=== PATIENT | male | born 1950 | race Caucasian/White ===

== ENCOUNTER 2017-04-12 09:57 | Outpatient (CLI) | payer OTHER ==
[2017-04-12 10:41] LABS: ALBUMIN 3.9 g/dL (3.2-5.5); ALBUMIN/GLOBULIN RATIO 1.3 (1.0-2.2); ALKALINE PHOSPHATASE 83 IU/L (42-121); ALT ALANINE AMINOTRANSFERASE 43 IU/L (10-60); AST ASPARTATE AMINOTRANSFERASE 32 IU/L (10-42); BILIRUBIN,TOTAL 1.1 mg/dL (0.2-1.0); BUN - BLOOD UREA NITROGEN 15 mg/dL (6-20); CALCIUM 9.3 mg/dL (8.5-10.3); CARBON DIOXIDE - CO2 26 mmol/L (21-32); CHLORIDE 105 mmol/L (101-111); CHOL/HDL RATIO 4.8 (<5.0); CHOLESTEROL 208 mg/dL; CREATININE 0.9 mg/dL (0.6-1.2); GFR - MDRD 84 (>89); GLUCOSE 202 mg/dL (70-100); HDL CHOLESTEROL 43 mg/dL; LDL CHOLESTEROL,CALCULATED 146 mg/dL; LDL/HDL RATIO 3.4 (<3.6); SODIUM 137 mmol/L (135-145); VLDL CHOLESTEROL 19 mg/dL
[2017-04-12 11:08] LABS: HB2 TOTAL 18.1 g/dL; HEMOGLOBIN A1C 1.35 g/dL
== END 2017-04-12 09:58 | disposition home or self-care (01) ==
LOC: LAB 09:57
PROVIDERS: ATTEND Physician Assistant
DX: E03.9 Hypothyroidism, unspecified (principal); I10 Essential (primary) hypertension; E78.5 Hyperlipidemia, unspecified; E11.9 Type 2 diabetes mellitus without complications
CPT/HCPCS: 36415; 80053; 80061; 83036; 84443

== ENCOUNTER 2017-08-29 15:15 | Outpatient (CLI) | payer MEDICARE, OTHER ==
--- NOTE | 2017-08-30 09:32 | Ultrasound Report ---
RIGHT UPPER QUADRANT ULTRASOUND: 08/29/2017 CLINICAL INDICATION: Abdominal pain, elevated alkaline phosphatase. TECHNIQUE: Real-time scanning was performed with commissary representative static images obtained. FINDINGS: The liver measures 15.8 cm. Hepatic echogenicity is diffusely heterogeneous. There are at least two discrete masses in the liver, a hypoechoic 8.6 x 5.8 x 5.1 cm lesion, and a mildly echogenic 6.0 x 2.5 x 1.9 cm. No intrahepatic biliary dilatation is seen. The common bile duct measures 6 mm. The gallbladder demonstrates a calculus. No wall thickening or pericholecystic fluid is seen. The right kidney measures 12.1 cm, and demonstrates moderate hydronephrosis and proximal hydroureter. No shadowing calculus is identified. IMPRESSION: 1. CHOLELITHIASIS, WITHOUT EVIDENCE OF BILIARY OBSTRUCTION. 2. HETEROGENEOUS LIVER, WITH AT LEAST TWO DISCRETE MASSES, SUSPICIOUS FOR MALIGNANCY. 3. RIGHT HYDRONEPHROSIS, OF UNCERTAIN ETIOLOGY. 4. FURTHER EVALUATION WITH CT OF THE ABDOMEN AND PELVIS IS RECOMMENDED. TD: 08/30/2017 09:03
== END 2017-08-29 15:16 | disposition home or self-care (01) ==
LOC: DI 15:15
PROVIDERS: ATTEND Internal Medicine
DX: K80.20 Calculus of gallbladder without cholecystitis without obstruction (principal); R10.9 Unspecified abdominal pain; R74.8 Abnormal levels of other serum enzymes; R16.0 Hepatomegaly, not elsewhere classified; N13.30 Unspecified hydronephrosis
CPT/HCPCS: 76705

== ENCOUNTER 2017-08-31 11:53 | Outpatient (CLI) | payer MEDICARE, OTHER ==
[2017-08-31] MEDS ORDERED: IOPAMIDOL-300 50 ML VIAL ONE (12:11)
[2017-08-31] MEDS ORDERED: IOPAMIDOL-300 100 ML VIAL ONE (12:11)
--- NOTE | 2017-08-31 13:45 | CT Report ---
CT ABDOMEN AND PELVIS WITH CONTRAST: 08/31/2017 CLINICAL INDICATION: Liver lesion, right hydronephrosis. TECHNIQUE: The abdomen and pelvis were obtained with 100 mL Isovue 300 intravenously as well as oral contrast. COMPARISON: Ultrasound 08/29/2017. FINDINGS: Limited evaluation of the lung bases is unremarkable. ABDOMEN: In the posterior inferior right lobe of the liver, there is a hypodense hepatic mass, measuring 10.8 x 5.1 x 6.1 cm, suspicious for primary hepatic neoplasm. There is periportal adenopathy present, with a node posterior to the portal vein measuring 3.2 x 1.5 cm. The spleen, pancreas, left kidney and left adrenal gland appear unremarkable. The right adrenal gland is difficult to separate from the adenopathy. The right kidney demonstrates hydronephrosis, likely secondary to adenopathy. The gallbladder is not dilated. No bowel dilatation, free gas, or abdominal adenopathy is seen. There is prominence of the omentum, especially in the left abdomen, suspicious for omental studding. PELVIS: No free fluid or pelvic adenopathy is appreciated. Thickening of the peritoneal lining in the left lower quadrant is noted, suspicious for peritoneal involvement. Osseous structures demonstrate degenerative changes. IMPRESSION: LARGE HEPATIC MASS, WITH PERIPORTAL ADENOPATHY, SUSPICIOUS FOR PRIMARY HEPATOCELLULAR CARCINOMA. RIGHT HYDRONEPHROSIS APPEARS SECONDARY TO ADENOPATHY. LIKELY PERITONEAL STUDDING. CT DOSE REDUCTION STATEMENT In accordance with CT protocol optimization, one or more of the following dose reduction techniques were utilized for this exam: automated exposure control, adjustment of mA and/or KV based on patient size, or use of iterative reconstructive technique. TD: 08/31/2017 13:37
[2017-09-05] MEDS ORDERED: IOPAMIDOL-300 100 ML VIAL IVP ONE (07:54)
[2017-09-05] MEDS ORDERED: IOPAMIDOL-300 50 ML VIAL PO ONE (07:54)
== END 2017-08-31 11:54 | disposition home or self-care (01) ==
LOC: DI 11:53
PROVIDERS: ATTEND Internal Medicine
DX: R16.0 Hepatomegaly, not elsewhere classified (principal); R59.0 Localized enlarged lymph nodes
CPT/HCPCS: 74177; Q9967

== ENCOUNTER 2017-09-01 14:48 | Outpatient (CLI) | payer MEDICARE, OTHER ==
[2017-09-01 16:10] LABS: BILIRUBIN,DIRECT 0.1 mg/dL (0.1-0.5); BILIRUBIN,TOTAL 0.7 mg/dL (0.2-1.0); CALCIUM 9.6 mg/dL (8.5-10.3); TOTAL PROTEIN 7.7 g/dL (6.7-8.2)
[2017-09-01 16:14] LABS: BASOPHILS # (AUTO) 0.1 10^3/uL (0.0-0.1); BASOPHILS % (AUTO) 0.6 %; EOSINOPHILS # (AUTO) 0.1 10^3/uL (0.0-0.7); EOSINOPHILS % (AUTO) 0.8 %; HGB - HEMOGLOBIN 16.4 g/dL (14.0-18.0); INR 1.2 (0.8-1.2); LYMPHOCYTES # (AUTO) 1.5 10^3/uL (1.5-3.5); LYMPHOCYTES % (AUTO) 15.7 %; MEAN CORPUSCULAR HEMOGLOBIN 30.8 pg (27.0-31.0); MEAN CORPUSCULAR HGB CONC 34.6 g/dL (32.0-36.0); MONOCYTES # (AUTO) 0.9 10^3/uL (0.0-1.0); MONOCYTES % (AUTO) 9.3 %; NEUTROPHILS # (AUTO) 7.1 10^3/uL (1.5-6.6); NEUTROPHILS % (AUTO) 73.6 %; PLT - PLATELET COUNT 198 10^3/uL (130-450); PT - PROTHROMBIN TIME 13.4 secs (9.9-12.6); RED BLOOD COUNT 5.34 10^6/uL (4.70-6.10); RED CELL DISTRIBUTION WIDTH 12.8 % (12.0-15.0); WHITE BLOOD COUNT 9.7 x10^3/uL (4.8-10.8)
[2017-09-02 12:51] LABS: HEPATITIS B CORE AB TOTAL NON-REACTIVE (NON-REACTIVE)
[2017-09-02 15:47] LABS: HEPATITIS B SURFACE ANTIGEN NON-REACTIVE (NON-REACTIVE)
[2017-09-02 17:52] LABS: HEPATITIS C ANTIBODY NON-REACTIVE (NON-REACTIVE)
[2017-09-05 11:11] LABS: ALPHA FETOPROTEIN TUMOR MARKER 4.2 ng/mL (<6.1)
== END 2017-09-01 14:49 | disposition home or self-care (01) ==
LOC: LAB 14:48
PROVIDERS: ATTEND Internal Medicine
DX: E78.5 Hyperlipidemia, unspecified (principal); R16.0 Hepatomegaly, not elsewhere classified; E11.9 Type 2 diabetes mellitus without complications; E03.9 Hypothyroidism, unspecified; C22.0 Liver cell carcinoma
CPT/HCPCS: 36415; 80048; 80076; 82105; 83540; 84466; 85025; 85610; 86704; 86803; 87340

== ENCOUNTER 2017-09-21 13:19 | Outpatient (CLI) | payer MEDICARE, OTHER ==
[2017-09-21 13:37] LABS: BASOPHILS % (AUTO) 0.6 %; EOSINOPHILS # (AUTO) 0.1 10^3/uL (0.0-0.7); EOSINOPHILS % (AUTO) 1.2 %; HGB - HEMOGLOBIN 15.5 g/dL (14.0-18.0); LYMPHOCYTES # (AUTO) 1.9 10^3/uL (1.5-3.5); LYMPHOCYTES % (AUTO) 25.2 %; MEAN CORPUSCULAR HEMOGLOBIN 31.4 pg (27.0-31.0); MEAN CORPUSCULAR HGB CONC 34.5 g/dL (32.0-36.0); MEAN PLATELET VOLUME 7.5 fL (7.4-11.4); MONOCYTES # (AUTO) 0.6 10^3/uL (0.0-1.0); MONOCYTES % (AUTO) 7.7 %; NEUTROPHILS # (AUTO) 4.9 10^3/uL (1.5-6.6); NEUTROPHILS % (AUTO) 65.3 %; PLT - PLATELET COUNT 249 10^3/uL (130-450); RED BLOOD COUNT 4.94 10^6/uL (4.70-6.10); RED CELL DISTRIBUTION WIDTH 12.6 % (12.0-15.0); WHITE BLOOD COUNT 7.5 x10^3/uL (4.8-10.8)
[2017-09-21 14:03] LABS: ALBUMIN 3.3 g/dL (3.2-5.5); ALBUMIN/GLOBULIN RATIO 0.8 (1.0-2.2); BILIRUBIN,TOTAL 0.7 mg/dL (0.2-1.0); CALCIUM 9.1 mg/dL (8.5-10.3); CREATININE 1.4 mg/dL (0.6-1.2); TOTAL PROTEIN 7.3 g/dL (6.7-8.2)
== END 2017-09-21 13:20 | disposition home or self-care (01) ==
LOC: LAB 13:19
PROVIDERS: ATTEND Pharmacist
DX: C22.0 Liver cell carcinoma (principal); R79.89 Other specified abnormal findings of blood chemistry; R93.5 Abnormal findings on diagnostic imaging of other abdominal regions, including retroperitoneum; I26.99 Other pulmonary embolism without acute cor pulmonale
CPT/HCPCS: 36415; 80053; 85025

== ENCOUNTER 2017-09-29 14:31 | Outpatient (CLI) | payer MEDICARE, OTHER ==
[2017-09-29 14:42] LABS: BASOPHILS # (AUTO) 0.1 10^3/uL (0.0-0.1); BASOPHILS % (AUTO) 0.8 %; EOSINOPHILS # (AUTO) 0.1 10^3/uL (0.0-0.7); EOSINOPHILS % (AUTO) 1.7 %; LYMPHOCYTES # (AUTO) 1.8 10^3/uL (1.5-3.5); LYMPHOCYTES % (AUTO) 25.8 %; MEAN CORPUSCULAR HEMOGLOBIN 31.3 pg (27.0-31.0); MEAN CORPUSCULAR HGB CONC 34.6 g/dL (32.0-36.0); MEAN CORPUSCULAR VOLUME 90.6 fL (80.0-94.0); MEAN PLATELET VOLUME 7.6 fL (7.4-11.4); MONOCYTES # (AUTO) 0.6 10^3/uL (0.0-1.0); MONOCYTES % (AUTO) 8.3 %; NEUTROPHILS # (AUTO) 4.5 10^3/uL (1.5-6.6); NEUTROPHILS % (AUTO) 63.4 %; PLT - PLATELET COUNT 221 10^3/uL (130-450); RED BLOOD COUNT 4.79 10^6/uL (4.70-6.10); RED CELL DISTRIBUTION WIDTH 12.8 % (12.0-15.0)
== END 2017-09-29 14:32 | disposition home or self-care (01) ==
LOC: LAB 14:31
PROVIDERS: ATTEND Pharmacist
DX: I26.99 Other pulmonary embolism without acute cor pulmonale (principal)
CPT/HCPCS: 36415; 81599; 85025; 87430; 87529

== ENCOUNTER 2017-10-02 08:53 | Outpatient (CLI) | END 2017-10-02 08:54 | disposition home or self-care (01) ==

== ENCOUNTER 2017-11-02 09:01 | Outpatient (CLI) | payer MEDICARE, OTHER ==
[2017-11-02 09:24] LABS: BASOPHILS # (AUTO) 0.1 10^3/uL (0.0-0.1); BASOPHILS % (AUTO) 1.2 %; EOSINOPHILS # (AUTO) 0.1 10^3/uL (0.0-0.7); HGB - HEMOGLOBIN 13.6 g/dL (14.0-18.0); LYMPHOCYTES # (AUTO) 1.3 10^3/uL (1.5-3.5); LYMPHOCYTES % (AUTO) 22.9 %; MEAN CORPUSCULAR HEMOGLOBIN 31.1 pg (27.0-31.0); MEAN CORPUSCULAR HGB CONC 34.8 g/dL (32.0-36.0); MEAN CORPUSCULAR VOLUME 89.5 fL (80.0-94.0); MEAN PLATELET VOLUME 7.2 fL (7.4-11.4); MONOCYTES # (AUTO) 0.1 10^3/uL (0.0-1.0); MONOCYTES % (AUTO) 1.3 %; NEUTROPHILS # (AUTO) 4.1 10^3/uL (1.5-6.6); NEUTROPHILS % (AUTO) 73.6 %; PLT - PLATELET COUNT 226 10^3/uL (130-450); RED BLOOD COUNT 4.37 10^6/uL (4.70-6.10); RED CELL DISTRIBUTION WIDTH 12.4 % (12.0-15.0); WHITE BLOOD COUNT 5.6 x10^3/uL (4.8-10.8)
== END 2017-11-02 09:02 | disposition home or self-care (01) ==
LOC: LAB 09:01
PROVIDERS: ATTEND Pharmacist
DX: I26.99 Other pulmonary embolism without acute cor pulmonale (principal)
CPT/HCPCS: 36415; 85025

== ENCOUNTER 2017-11-03 08:56 | Outpatient (CLI) | payer MEDICARE, OTHER ==
[2017-11-03 09:59] LABS: ALBUMIN 3.2 g/dL (3.2-5.5); ALBUMIN/GLOBULIN RATIO 0.8 (1.0-2.2); CALCIUM 9.1 mg/dL (8.5-10.3); CREATININE 1.3 mg/dL (0.6-1.2); MAGNESIUM 1.8 mg/dL (1.7-2.8)
== END 2017-11-03 08:57 | disposition home or self-care (01) ==
LOC: LAB 08:56
PROVIDERS: ATTEND Internal Medicine Medical Oncology
DX: I26.99 Other pulmonary embolism without acute cor pulmonale (principal)
CPT/HCPCS: 36415; 80053; 83735

== ENCOUNTER 2017-11-30 11:23 | Outpatient (CLI) | payer MEDICARE, OTHER ==
[2017-11-30 12:08] LABS: HB2 TOTAL 12.5 g/dL; HEMOGLOBIN A1C 1.03 g/dL; HEMOGLOBIN A1C % 9.7 % (4.6-6.2)
== END 2017-11-30 11:24 | disposition home or self-care (01) ==
LOC: LAB 11:23
PROVIDERS: ATTEND Naturopath
DX: C22.1 Intrahepatic bile duct carcinoma (principal); Z86.711 Personal history of pulmonary embolism; E11.9 Type 2 diabetes mellitus without complications; E83.42 Hypomagnesemia
CPT/HCPCS: 36415; 82525; 83036; 83735; 84630; 85384; 85651

== ENCOUNTER 2018-03-14 16:48 | Outpatient (CLI) | payer MEDICARE, OTHER ==
--- NOTE | 2018-03-15 09:24 | Ultrasound Report ---
Reason: HYDRONEPHROSIS, RIGHT Procedure Date: 03/14/2018 Accession Number: [id number] / [id number] Procedure: US - Retroperitoneal CPT Code: FULL RESULT: EXAM: RENAL ULTRASOUND EXAM DATE: 03/14/2018 06:00 PM. CLINICAL HISTORY: Hydronephrosis, right. COMPARISON: None. TECHNIQUE: Real-time scanning was performed with static images obtained. FINDINGS: Blood flow to both kidneys is grossly preserved by color Doppler. Right Kidney: 11.2 cm. Normal echotexture and no grupo hydronephrosis. There is likely a 0.4 mm calculus versus tiny calcified cyst in the left renal midpole, poorly visualized, not suspicious. There is question of a trace pelvocaliectasis. Left Kidney: 12.5 cm. Normal echotexture with no stones, contour-deforming masses, or hydronephrosis. Bladder: Bilateral jets seen. The prevoid bladder volume was 705 cc. The postvoid bladder volume was 397 cc. Other: None. IMPRESSION: No grupo hydronephrosis/obstruction. Significant post void residual, urinary retention. This may account for the questionable trace pelviectasis of the right kidney. RADIA
== END 2018-03-14 16:49 | disposition home or self-care (01) ==
LOC: DI 16:48
PROVIDERS: ATTEND Urology
DX: N13.30 Unspecified hydronephrosis (principal)
CPT/HCPCS: 76770

== ENCOUNTER 2018-04-05 09:38 | Outpatient (CLI) | payer MEDICARE, OTHER ==
[2018-04-05 10:33] LABS: ALBUMIN 3.6 g/dL (3.2-5.5); ALBUMIN/GLOBULIN RATIO 1.2 (1.0-2.2); BASOPHILS % (AUTO) 0.4 %; CALCIUM 9.3 mg/dL (8.5-10.3); CREATININE 1.3 mg/dL (0.6-1.2); EOSINOPHILS % (AUTO) 1.4 %; HGB - HEMOGLOBIN 12.4 g/dL (14.0-18.0); LYMPHOCYTES # (AUTO) 0.8 10^3/uL (1.5-3.5); LYMPHOCYTES % (AUTO) 28.1 %; MAGNESIUM 1.8 mg/dL (1.7-2.8); MEAN CORPUSCULAR HEMOGLOBIN 33.9 pg (27.0-31.0); MEAN CORPUSCULAR VOLUME 96.9 fL (80.0-94.0); MEAN PLATELET VOLUME 7.4 fL (7.4-11.4); MONOCYTES # (AUTO) 0.4 10^3/uL (0.0-1.0); MONOCYTES % (AUTO) 14.3 %; NEUTROPHILS # (AUTO) 1.6 10^3/uL (1.5-6.6); NEUTROPHILS % (AUTO) 55.8 %; PLT - PLATELET COUNT 258 10^3/uL (130-450); RED BLOOD COUNT 3.66 10^6/uL (4.70-6.10); RED CELL DISTRIBUTION WIDTH 14.8 % (12.0-15.0); TOTAL PROTEIN 6.7 g/dL (6.7-8.2); WHITE BLOOD COUNT 2.9 x10^3/uL (4.8-10.8)
[2018-04-05 10:36] LABS: HEMOGLOBIN A1C 0.99 g/dL; HEMOGLOBIN A1C % 9.1 % (4.6-6.2)
[2018-04-05 10:57] LABS: RBC MORPHOLOGY (MULTIPLE) 1+ ANISOCYTOSIS (NORMAL)
== END 2018-04-05 09:39 | disposition home or self-care (01) ==
LOC: LAB 09:38
PROVIDERS: ATTEND Nurse Practitioner Adult Health
DX: Z86.711 Personal history of pulmonary embolism (principal); E11.9 Type 2 diabetes mellitus without complications; R53.83 Other fatigue; C22.1 Intrahepatic bile duct carcinoma; C80.1 Malignant (primary) neoplasm, unspecified; N18.9 Chronic kidney disease, unspecified; D70.1 Agranulocytosis secondary to cancer chemotherapy; R11.0 Nausea
CPT/HCPCS: 36415; 80053; 81599; 82378; 83036; 83735; 85025; 85384; 85651; 86301

== ENCOUNTER 2018-05-09 08:01 | Outpatient (CLI) | payer MEDICARE, OTHER ==
--- NOTE | 2018-05-09 16:34 | Nuclear Medicine Report ---
Reason: HYDRONEPHROSIS OF RIGHT KIDNEY Procedure Date: 05/09/2018 Accession Number: [id number] / [id number] Procedure: NM - Renal Flow + Function w/Rx CPT Code: FULL RESULT: EXAM: RENOGRAM WITH LASIX EXAM DATE: 05/09/2018 11:11 AM. CLINICAL HISTORY: HYDRONEPHROSIS OF RIGHT KIDNEY. COMPARISON: RETROPERITONEAL 03/14/2018 5:17 PM RENAL SCAN 10/02/2017 9:27 AM. TECHNIQUE: Adequate hydration status was ensured. Patient received the intravenous administration of 5.5 mCi Tc-99m MAG3. Immediate renal blood flow images were acquired for 2 minutes. Approximately 10 minutes into the study, the patient received an intravenous administration of 40 mg Lasix. Renal dynamic images were acquired from the posterior projection for approximately 40 minutes. Postvoid images were acquired as well. FINDINGS: Renal Vascular Flow: There is asymmetrically decreased vascular flow to the right kidney. Renal Parenchymal Function: Time to peak activity in the left kidney is 3 minutes. Impaired function of the right kidney with time to peak activity approximately 19 minutes. Drainage: In the left kidney, there is normal drainage for the first 10 minutes. After this point, there is very slow drainage. Post Lasix drainage half-time of the left kidney is greater than 20 minutes. The left renal collecting system does not appear significantly dilated. The right renal collecting system is mildly dilated. There is poor drainage with drainage half-time greater than 20 minutes. Postvoid Images: There is retention of activity in both kidneys and in the urinary bladder. Differential Function: Left Kidney = 78.6% Right Kidney = 21.4% IMPRESSION: 1. Poorly functioning right kidney with little drainage, similar pattern compared to the prior exam. 2. There is initial good drainage of left kidney without collecting system dilation. There is slow drainage past 10 minutes with persistent cortical retention of activity on postvoid images, suggesting impaired renal function rather than obstruction. This is new compared to the prior exam. RADIA
== END 2018-05-09 08:02 | disposition home or self-care (01) ==
LOC: DI 08:01
PROVIDERS: ATTEND Urology
DX: N25.9 Disorder resulting from impaired renal tubular function, unspecified (principal); N13.30 Unspecified hydronephrosis
CPT/HCPCS: 78708

== ENCOUNTER 2018-07-09 09:08 | Outpatient (CLI) | payer MEDICARE, OTHER ==
[2018-07-09 09:21] LABS: BASOPHILS % (AUTO) 0.7 %; EOSINOPHILS % (AUTO) 1.8 %; HGB - HEMOGLOBIN 12.7 g/dL (14.0-18.0); LYMPHOCYTES # (AUTO) 1.2 10^3/uL (1.5-3.5); LYMPHOCYTES % (AUTO) 49.9 %; MEAN CORPUSCULAR HEMOGLOBIN 34.3 pg (27.0-31.0); MEAN CORPUSCULAR HGB CONC 34.6 g/dL (32.0-36.0); MEAN CORPUSCULAR VOLUME 99.1 fL (80.0-94.0); MEAN PLATELET VOLUME 7.3 fL (7.4-11.4); MONOCYTES # (AUTO) 0.3 10^3/uL (0.0-1.0); MONOCYTES % (AUTO) 13.8 %; NEUTROPHILS # (AUTO) 0.8 10^3/uL (1.5-6.6); NEUTROPHILS % (AUTO) 33.8 %; PLT - PLATELET COUNT 218 10^3/uL (130-450); RED CELL DISTRIBUTION WIDTH 15.4 % (12.0-15.0); WHITE BLOOD COUNT 2.3 x10^3/uL (4.8-10.8)
[2018-07-09 09:33] LABS: ALBUMIN 3.6 g/dL (3.2-5.5); ALBUMIN/GLOBULIN RATIO 1.1 (1.0-2.2); BILIRUBIN,TOTAL 0.9 mg/dL (0.2-1.0); CALCIUM 9.5 mg/dL (8.5-10.3); CREATININE 1.4 mg/dL (0.6-1.2); MAGNESIUM 1.9 mg/dL (1.7-2.8)
[2018-07-09 11:04] LABS: PLATELET MORPHOLOGY NORMAL APPEARANCE (NORMAL)
[2018-07-09 11:05] LABS: PLATELET ESTIMATE, MANUAL NORMAL (130-450,000) (NORMAL)
== END 2018-07-09 09:09 | disposition home or self-care (01) ==
LOC: LAB 09:08
PROVIDERS: ATTEND Internal Medicine Medical Oncology
DX: C22.1 Intrahepatic bile duct carcinoma (principal)
CPT/HCPCS: 36415; 80053; 82378; 83735; 85025; 86301

== ENCOUNTER 2018-12-08 08:00 | Outpatient (CLI) | payer MEDICARE, OTHER | END 2018-12-08 08:01 | disposition critical access hospital (66) | LOC: EMS 08:00 | PROVIDERS: ATTEND Surgery | DX: R42 Dizziness and giddiness (principal); R55 Syncope and collapse | CPT/HCPCS: A0425; A0427 ==

== ENCOUNTER 2018-12-08 08:08 | Emergency (ER) | payer MEDICARE, OTHER ==
[2018-12-08] MEDS ORDERED: HYDROmorphone 1 MG/ML CARPUJECT IVP STA (08:26)
[2018-12-08] MEDS ORDERED: SODIUM CHLORIDE 0.9% 1,000 ML IV ONE ×5 (08:26→14:52)
[2018-12-08] MEDS ORDERED: KETOROLAC 15 MG/ML VIAL IVP STA (08:26)
[2018-12-08] MEDS ORDERED: MINERAL OIL ENEMA 133 ML BOTTLE RC STA (08:28)
[2018-12-08] MEDS ORDERED: PROCHLORPERAZINE 10 MG/2 ML VIAL IVP STA (08:30)
--- NOTE | 2018-12-08 08:31 | ED Physician Documentation ---
PD HPI ABD PAIN - Stated complaint Stated Complaint: NEAR SYNCOPE - Chief complaint Chief Complaint: Abd Pain - History obtained from History obtained from: Patient, Family () - History of Present Illness Timing - onset: Today, Last night Timing - details: Gradual onset, Still present, Waxing and waning (He has not had a bowel movement for 4 days. He states he typically will go 3 or 4 days without one and will get some cramping pains prior to the bowel movement. He initially thought he was going to have a bowel movement with cramping started last night and into this morning. He gave himself an enema without any production of stool. He however had a significantly increased amount of abdominal pain and also was feeling lightheaded and nauseous. He had some episo clare of vomiting without any noted coffee grounds or blood. He was feeling generally weak.) Quality: Cramping, Aching, Fullness/distended (He has been developing fullness and distention from ascites gradually over several weeks. He is scheduled to have a paracentesis done at the this coming Monday. He had been feeling more tightly distended with cramping the last couple of days.), Pain Location: All over / everywhere (but more in lower abd) Radiation: Lower back. No: Chest, Left flank, Right flank Improved by: No: Laying still Worsened by: Eating, Moving, Palpation Associated symptoms: Nausea, Vomiting, Constipation (for 4 days since last BM and ongoing constipation prior to that.), Near syncope / syncope, Loss of appetite. No: Fever, Diarrhea, Weight loss Similar symptoms before: Has not had sx before (He has had cramping pain with constipation and prior to bowel movements with enema use in the past. 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 There is some liver lesions as well.) Review of Systems Constitutional: reports: Myalgias, Fatigue. denies: Fever, Chills Nose: denies: Rhinorrhea / runny nose, Congestion Throat: denies: Sore throat Respiratory: denies: Cough GI: reports: Abdominal Pain, Nausea, Vomiting, Constipation. denies: Diarrhea, Hematemesis, Bloody / black stool : denies: Dysuria, Frequency Skin: denies: Rash, Lesions Neurologic: reports: Generalized weakness, Near syncope. denies: Focal weaknes s, Syncope, Altered mental status, Headache PD PAST MEDICAL HISTORY - Past Medical History Cardiovascular: Hypertension Endocrine/Autoimmune: Type 2 diabetes, HyPOthyroidism - Past Surgical History Past Surgical History: Yes HEENT: Tonsil/Adenoidectomy - Present Medications Home Medications: Ambulatory Orders Medication Instructions Recorded Confirmed Levothyroxine Sodium 75 mcg ORAL DAILY 01/01/16 02/08/16 Lisinopril 10 mg ORAL DAILY 01/01/16 02/08/16 Metformin HCl 1,500 mg ORAL DAILY 01/01/16 02/08/16 Cephalexin [Keflex] 500 mg PO QID #24 capsule 02/09/16 Naproxen Sodium 550 mg PO BID #20 tablet 02/09/16 - Allergies Allergies/Adverse Reactions: Allergies Allergy/AdvReac Type Severity Reaction Status Date / Time No Known Drug Allergies Allergy Verified 12/08/18 08:18 - Social History Does the pt smoke?: No Smoking Status: Never smoker Does the pt drink ETOH?: Yes Does the pt have substance abuse?: No - Immunizations Immunizations are current?: Yes - POLST Patient has POLST: No PD ED PE NORMAL - Vitals Vital signs reviewed: Yes - General General: Alert and oriented X 3, Well developed/nourished, Other (He does appear uncomfortable related to lower abdominal pain. He appears nauseated holding an emesis bag.) - HEENT HEENT: PERRL (nonicteric), Pharynx benign - Neck Neck: Supple, no meningeal sign, No adenopathy - Cardiac Cardiac: No murmur. No: RRR (regular but tachycardic) - Respiratory Respiratory: Clear bilaterally - Abdomen Abdomen: Other (His abdomen is significantly distended with tightness and general dullness to percussion. He has an enlarged liver by palpation. There is no hernia palpable. He is generally tender to palpation but more notably in the periumbilical to lower abdomen. Bowel sounds are diminished bilaterally.) - Male Male : Deferred - Rectal Rectal: Other (The patient has good rectal tone. He does not have any stool in the vault or minimally so. It is brown-colored and guaiac negative.) - Back Back: No CVA TTP - Derm Derm: Warm and dry. No: Normal color (pallor) - Extremities Extremities: No deformity, No tenderness to palpate, Normal ROM s pain, No edema, No calf tenderness / cord - Neuro Neuro: Alert and oriented X 3, No motor deficit, Normal speech Eye Opening: Spontaneous Motor: Obeys Commands Verbal: Oriented GCS Score: 15 Results - Vitals Vitals: Vital Signs - 24 hr 12/08/18 12/08/18 12/08/18 08:10 10:16 10:28 Temperature 36.5 C Heart Rate 114 H 118 H Respiratory 17 16 Rate Blood Pressure 148/133 H 82/55 L O2 Saturation 97 12/08/18 12/08/18 12/08/18 10:47 11:04 11:15 Temperature Heart Rate 116 H 110 H 109 H Respiratory 19 19 14 Rate Blood Pressure 86/58 L 110/73 105/83 H O2 Saturation 93 92 94 12/08/18 12/08/18 12/08/18 11:20 11:25 11:30 Temperature Heart Rate 105 H 106 H 106 H Respiratory 12 12 12 Rate Blood Pressure 122/96 H 91/68 99/68 O2 Saturation 95 96 95 12/08/18 12/08/18 12/08/18 11:35 13:56 14:30 Temperature Heart Rate 105 H 105 H 105 H Respiratory 15 12 17 Rate Blood Pressure 74/43 L 85/63 L 92/74 O2 Saturation 98 93 98 Oxygen O2 Source Oxymask Oxygen Flow Rate 4 - Labs Labs: Microbiology 12/08/18 11:13 Body Fluid Culture - Preliminary Peritoneal Fluid Laboratory Tests 12/08/18 12/08/18 12/08/18 08:35 08:35 08:35 WBC 4.3 L RBC 4.81 Hgb 15.4 Hct 45.4 MCV 94.4 H MCH 32.0 H MCHC 33.9 RDW 13.9 Plt Count 126 L MPV 9.9 Neut # (Auto) 2.0 Lymph # (Auto) 2.0 Maries # (Auto) 0.3 Eos # (Auto) 0.0 Baso # (Auto) 0.0 Absolute Nucleated RBC 0.02 Nucleated RBC % 0.5 Sodium 137 Potassium 3.3 L Chloride 102 Carbon Dioxide 21 Anion Gap 14.0 H BUN 17 Creatinine 1.7 H Estimated GFR (MDRD) 40 L Glucose 270 H Lactic Acid 5.6 H* Calcium 10.6 H Magnesium 3.1 H Total Bilirubin 0.6 AST 46 H ALT 30 Alkaline Phosphatase 81 Troponin I High Sens Total Protein 6.7 Albumin 3.0 L Globulin 3.7 Albumin/Globulin Ratio 0.8 L Lipase 76 H Fluid Source Fluid Color Fluid Clarity Fluid WBC Fluid RBC Fluid Neutrophils % Fluid Lymphocytes % Fluid Monocytes % Fluid Macrophages % 12/08/18 12/08/18 12/08/18 08:35 11:11 11:11 WBC RBC Hgb Hct MCV MCH MCHC RDW Plt Count MPV Neut # (Auto) Lymph # (Auto) Maries # (Auto) Eos # (Auto) Baso # (Auto) Absolute Nucleated RBC Nucleated RBC % Sodium Potassium Chloride Carbon Dioxide Anion Gap BUN Creatinine Estimated GFR (MDRD) Glucose Lactic Acid 4.4 H* Calcium Magnesium Total Bilirubin AST ALT Alkaline Phosphatase Troponin I High Sens 30.4 H* 67.0 H* Total Protein Albumin Globulin Albumin/Globulin Ratio Lipase Fluid Source Fluid Color Fluid Clarity Fluid WBC Fluid RBC Fluid Neutrophils % Fluid Lymphocytes % Fluid Monocytes % Fluid Macrophages % 12/08/18 12/08/18 12/08/18 11:11 11:13 15:05 WBC RBC Hgb 13.5 L 13.7 L Hct 40.3 L 41.3 L MCV MCH MCHC RDW Plt Count MPV Neut # (Auto) Lymph # (Auto) Maries # (Auto) Eos # (Auto) Baso # (Auto) Absolute Nucleated RBC Nucleated RBC % Sodium Potassium Chloride Carbon Dioxide Anion Gap BUN Creatinine Estimated GFR (MDRD) Glucose Lactic Acid Calcium Magnesium Total Bilirubin AST ALT Alkaline Phosphatase Troponin I High Sens Total Protein Albumin Globulin Albumin/Globulin Ratio Lipase Fluid Source PERITONEAL Fluid Color STRAW Fluid Clarity HAZY Fluid WBC 963 Fluid RBC 7000 Fluid Neutrophils % 4 Fluid Lymphocytes % 23 Fluid Monocytes % 14 Fluid Macrophages % 59 12/08/18 15:05 WBC RBC Hgb Hct MCV MCH MCHC RDW Plt Count MPV Neut # (Auto) Lymph # (Auto) Maries # (Auto) Eos # (Auto) Baso # (Auto) Absolute Nucleated RBC Nucleated RBC % Sodium Potassium Chloride Carbon Dioxide Anion Gap BUN Creatinine Estimated GFR (MDRD) Glucose Lactic Acid 6.5 H* Calcium Magnesium Total Bilirubin AST ALT Alkaline Phosphatase Troponin I High Sens Total Protein Albumin Globulin Albumin/Globulin Ratio Lipase Fluid Source Fluid Color Fluid Clarity Fluid WBC Fluid RBC Fluid Neutrophils % Fluid Lymphocytes % Fluid Monocytes % Fluid Macrophages % Procedures - Paracentesis Preparation: Consent obtained, Ultrasound guidance, Sterile prep and drape, Local anesthesia Location: LLQ Technique: Z-tract, Catheter over needle Fluid: Cloudy, Sent for cell count, Sent for gram stain, Sent for culture, Sent for protein Aftercare: No complications, Patient tolerated well, Dressing applied PD MEDICAL DECISION MAKING - ED course Complexity details: reviewed results (CT scan did not show any acute obvious process. Known ascites as well as bile duct and liver and peritoneal metallic stenoses were seen. No account for acute infectious process per se. Moderate stool burden. His lactate was elevated and so concern for infectious process. His white count was not elevated but he is post chemotherapy and may be artificially suppressed. The peritoneal fluid post paracentesis showed a white count of 900 with a neutrophil count of 4 and a macrophage count of 50. Otherwise lymphocytes and other cells. This did not necessarily meet the true SBP criteria of greater than 250 PMNs. However he is clinical picture is that of sepsis concern and no other obvious sources identified. I feel we need to treat him as SBP.), re-evaluated patient (He did have diminished alertness and some hypoventilation which responded to supplemental oxygen after the IV pain medicines. The initial dose did not provide much pain relief and so a second dose was given in that was when he had less alertness. He denied any headache. He states his abdominal pain was decreased significantly. Considering constipation, we did give a enema here without any production of stool. There was concern for the abdominal tenderness in association with the ascites and his elevated lactate and blood pressure abnormality. The CT scan did not show any acute process aside from the known tumors and ascites. With this I was concerned about peritonitis and discussed with the patient and his and obtained verbal and written consent for paracentesis. The patient's blood pressure was hypotensive prior to fluids and did improve with IV fluids and then low again after pain medicines. And improved again with some more IV fluids.), d/w bridal sales consultant ( transfer center and then oncology service) ED course: His blood pressure was wavering but did become normotensive with IV fluids. It was susceptible to wavering with interventions such as decreased after pain medication and decreased after the paracentesis. Both did respond to IV fluids. He was started on IV antibiotics post paracentesis for concern of SBP. He did have emesis in the department with some coffee-ground material but no overt red blood. The patient is a patient of the [facility] and is complicated conditions and illness right now. I feel he would benefit from a higher level of care and will contact the transfer center for transfer to [facility]. Apparently receiving providers not sure of placement and want reassessment in ER. Transfer center directed us to just send the patient to the emergency room at [facility] for reassessment and subsequent bed assignment there. - Critical Care Time(min): 60 Time Includes: Direct patient care, Reassess patient, Coordinate care, Family consult for tx dec Data interpretation: Labs, Pulse ox Departure - Departure Disposition: 02 Transfer Acute Care Hosp Clinical Impression: SBP (spontaneous bacterial peritonitis), Elevated lactic acid level, Bile duct carcinoma, Hypotension Abdominal pain Qualifiers: Abdominal location: generalized Qualified Code(s): R10.84 - Generalized abdominal pain Constipation Qualifiers: Constipation type: unspecified constipation type Qualified Code(s): K59.00 - Constipation, unspecified Acute gastritis Qualifiers: Gastritis type: unspecified gastritis Gastritis bleeding: with bleeding Qualified Code(s): K29.01 - Acute gastritis with bleeding Condition: Stable Record reviewed to determine appropriate education?: Yes
[2018-12-08 08:41] LABS: BASOPHILS % (AUTO) 0.2 %; EOSINOPHILS % (AUTO) 0.7 %; HGB - HEMOGLOBIN 15.4 g/dL (14.0-18.0); LYMPHOCYTES % (AUTO) 45.9 %; MEAN CORPUSCULAR HGB CONC 33.9 g/dL (32.0-36.0); MEAN CORPUSCULAR VOLUME 94.4 fL (80.0-94.0); MEAN PLATELET VOLUME 9.9 fL (7.4-11.4); MONOCYTES # (AUTO) 0.3 10^3/uL (0.0-1.0); NEUTROPHILS % (AUTO) 45.5 %; PLT - PLATELET COUNT 126 10^3/uL (130-450); RED BLOOD COUNT 4.81 10^6/uL (4.70-6.10); RED CELL DISTRIBUTION WIDTH 13.9 % (12.0-15.0); WHITE BLOOD COUNT 4.3 x10^3/uL (4.8-10.8)
[2018-12-08] MEDS ORDERED: HYDROmorphone 2 MG/ML VIAL IVP STA (08:45)
[2018-12-08] MEDS ORDERED: IOVERSOL 320 100 ML VIAL IVP ONE ×2 (08:49→09:17)
[2018-12-08 08:55] LABS: ALBUMIN/GLOBULIN RATIO 0.8 (1.0-2.2); BILIRUBIN,TOTAL 0.6 mg/dL (0.2-1.0); CALCIUM 10.6 mg/dL (8.5-10.3); CREATININE 1.7 mg/dL (0.6-1.2); MAGNESIUM 3.1 mg/dL (1.7-2.8); TOTAL PROTEIN 6.7 g/dL (6.7-8.2)
--- NOTE | 2018-12-08 09:46 | CT Report ---
Reason: abrupt lower abd pain; constipation; ascites Procedure Date: 12/08/2018 Accession Number: [id number] / [id number] Procedure: CT - Abdomen/Pelvis W CPT Code: FULL RESULT: EXAM: CT ABDOMEN AND PELVIS EXAM DATE: 12/08/2018 09:17 AM. CLINICAL HISTORY: Abrupt lower abd pain; constipation; ascites. Biliary cancer. COMPARISONS: ABDOMEN/PELVIS W/ 08/31/2017 1:08 PM. TECHNIQUE: Routine helical CT imaging was performed through the abdomen and pelvis. IV contrast: OPTI 320 90ML. Enteric contrast: No. Reconstructions: Coronal and sagittal. In accordance with CT protocol optimization, one or more of the following dose reduction techniques were utilized for this exam: automated exposure control, adjustment of mA and/or KV based on patient size, or use of iterative reconstructive technique. FINDINGS: Lung Bases: Trace pleural fluid bilaterally. Mild wispy bibasilar airspace opacity most consistent with atelectasis. 4 mm focal/nodular density in the posterior basal left lower lobe peripherally (3/3), not clearly seen on the prior study. No other distinct nodules are identified. Liver: The liver is small in overall size the hypovascular mass in the posterior right hepatic lobe is markedly decreased in size with a residual hypodense area measuring approximately 3 x 4 x 3 cm with a few punctate foci of dystrophic calcification. In the anterior right lobe, there is a 0.9 x 0.7 cm oval hypodense nodular focus, not seen before, nonspecific. No other distinct nodules. Gallbladder/Bile Ducts: Gallbladder is normal in size. There is a stent from the common hepatic duct through the mid pancreatic, bile duct, new since 2018. There is minimal left lobe pneumobilia. There is no grupo biliary ductal dilatation. Spleen: Normal. Pancreas: Normal. Adrenal Glands: Normal. Kidneys: Subcentimeter hypodense focus suggesting a scar at the anterior midpole of the left kidney, as before. Otherwise unremarkable. No hydronephrosis. Peritoneal Cavity/Bowel: There is moderate fluid in the distal esophagus. The stomach is mildly distended with fluid and food. Unopacified small bowel loops are nondistended and unremarkable. There is an anteriorly directed mobile cecum. The appendix is not clearly identified. There is a small amount of formed stool in the colon. There is no focal pericolonic fat stranding. There is moderate ascites. There is mild micro-nodularity and moderate reticulation in the mesenteric fat in the left upper quadrant suggesting carcinomatosis. No frankly enlarged lymph nodes are identified. There is no pneumoperitoneum. Pelvic Organs: The bladder is unremarkable. Prostate gland and seminal vesicles are unremarkable. Vasculature: Mild aortoiliac atherosclerotic calcification. Mesenteric, splenic, and portal veins are unremarkable. Bones: Mild diffuse idiopathic skeletal hyperostosis in the lower thoracic greater than lower lumbar spine. There is superimposed degenerative disk disease which is mild to moderate throughout the lumbar spine. There is mild lateral L3-L4 facet osteoarthritis. Other: There is a 3 cm slightly hyperdense nodular focus superficially in the muscular layer of the anterolateral right upper quadrant abdominal wall (3/50). IMPRESSION: 1. Moderate ascites. Micro-nodularity and reticulation in the left upper quadrant mesenteric fat suggests peritoneal carcinomatosis. 2. Mass in the posterior right hepatic lobe markedly decreased from 2018 with an approximately 3 x 4 x 3 cm residual. New nonspecific 0.9 x 0.7 cm hypodense focus in the anterior right hepatic lobe which could be metastatic. 3. Common hepatic duct/common bile duct stent is not present. There is no significant biliary ductal dilatation. 4. Moderate fluid in the distal esophagus. Moderate food and fluid in the proximal stomach. Esophageal dysmotility or gastroesophageal reflux could give this appearance. No evidence of small bowel or colonic obstruction. 5. New 3 cm masslike area in the right anterolateral upper quadrant abdominal wall which could represent a hematoma or metastasis. 6. Minimal wispy bibasilar atelectasis. New 4 mm focal/nodular density in the posterior basal left lower lobe, nonspecific. RADIA
[2018-12-08] MEDS ORDERED: FAMOTIDINE 20 MG/2 ML VIAL IVP STA (10:18)
[2018-12-08 11:19] LABS: HGB - HEMOGLOBIN 13.5 g/dL (14.0-18.0)
[2018-12-08] MEDS ORDERED: AMPICILLIN/SULBACTAM 1.5 GM in SODIUM CHLORIDE 0.9% MINIBAG 100 ML IV STA (11:38)
[2018-12-08 11:58] LABS: BF SOURCE PERITONEAL; CC,BF RBC 7000 /mm^3
[2018-12-08 11:59] LABS: BF COLOR STRAW
[2018-12-08] MEDS ORDERED: POLYETHYLENE GLYCOL 3350 17 GM PACKET PO STA (12:29)
[2018-12-08 12:37] LABS: LYMPHOCYTES %,BODY FLUID 23; MACROPHAGES %,BODY FLUID 59 %; MONOCYTES %,BODY FLUID 14 %
[2018-12-08] MEDS ORDERED: ACETAMINOPHEN 1,000 MG/100 ML 100 ML IV STA (14:54)
[2018-12-08 15:17] LABS: HGB - HEMOGLOBIN 13.7 g/dL (14.0-18.0)
[2018-12-08] MEDS ORDERED: metroNIDAZOLE 500 MG/100 ML 500 MG/100 ML BAG IV ONE (15:38)
[2018-12-08 17:14] VITALS: BP 89/64
== END 2018-12-08 16:48 | disposition short-term general hospital (02) ==
LOC: EDUNIT# → ED 08:08
DX: K65.2 Spontaneous bacterial peritonitis (principal); K29.01 Acute gastritis with bleeding; K59.00 Constipation, unspecified; C24.0 Malignant neoplasm of extrahepatic bile duct; C78.6 Secondary malignant neoplasm of retroperitoneum and peritoneum; R18.8 Other ascites; I95.9 Hypotension, unspecified; R74.0 Nonspecific elevation of levels of transaminase and lactic acid dehydrogenase [LDH]; R06.89 Other abnormalities of breathing; I10 Essential (primary) hypertension; E11.9 Type 2 diabetes mellitus without complications; Z79.84 Long term (current) use of oral hypoglycemic drugs
CPT/HCPCS: 36415; 49083; 74177; 80053; 81599; 83605; 83690; 83735; 84484; 85014; 85018; 85025; 87070; 87205; 89051; 93005; 96361; 96365; 96366; 96367; 96368; 96375; 99291; A9270; J0131; J1170; Q9967; 84157

== ENCOUNTER 2019-01-07 10:08 | Outpatient (CLI) | payer MEDICARE, OTHER | END 2019-01-07 10:09 | disposition critical access hospital (66) | LOC: EMS 10:08 | PROVIDERS: ATTEND Surgery | DX: R26.81 Unsteadiness on feet (principal); R09.89 Other specified symptoms and signs involving the circulatory and respiratory systems | CPT/HCPCS: A0425; A0427 ==

== ENCOUNTER 2019-01-07 10:20 | Emergency (ER) | payer MEDICARE, OTHER ==
[2019-01-07] MEDS ORDERED: SODIUM CHLORIDE 0.9% 1,000 ML IV ONE (12:03)
[2019-01-07 12:22] LABS: BASOPHILS % (AUTO) 0.4 %; EOSINOPHILS % (AUTO) 0.7 %; HGB - HEMOGLOBIN 9.5 g/dL (14.0-18.0); LYMPHOCYTES # (AUTO) 1.4 10^3/uL (1.5-3.5); LYMPHOCYTES % (AUTO) 25.6 %; MEAN CORPUSCULAR HGB CONC 32.8 g/dL (32.0-36.0); MEAN CORPUSCULAR VOLUME 97.6 fL (80.0-94.0); MEAN PLATELET VOLUME 9.5 fL (7.4-11.4); MONOCYTES # (AUTO) 0.8 10^3/uL (0.0-1.0); MONOCYTES % (AUTO) 15.5 %; NEUTROPHILS % (AUTO) 56.5 %; PLT - PLATELET COUNT 111 10^3/uL (130-450); RED BLOOD COUNT 2.97 10^6/uL (4.70-6.10); RED CELL DISTRIBUTION WIDTH 16.4 % (12.0-15.0); WHITE BLOOD COUNT 5.4 x10^3/uL (4.8-10.8)
[2019-01-07 12:31] LABS: ALBUMIN 2.2 g/dL (3.2-5.5); ALBUMIN/GLOBULIN RATIO 0.6 (1.0-2.2); BILIRUBIN,TOTAL 0.4 mg/dL (0.2-1.0); CALCIUM 8.3 mg/dL (8.5-10.3); CREATININE 1.6 mg/dL (0.6-1.2); TOTAL PROTEIN 5.6 g/dL (6.7-8.2)
[2019-01-07 13:23] LABS: BILIRUBIN,URINE NEGATIVE (NEGATIVE); GLUCOSE, URINE (UA) NEGATIVE (NEGATIVE); KETONES,URINE (UA) NEGATIVE (NEGATIVE); LEUKOCYTE ESTERASE, URINE NEGATIVE (NEGATIVE); NITRITE,URINE NEGATIVE (NEGATIVE); OCCULT BLOOD,URINE NEGATIVE (NEGATIVE); PROTEIN,URINE NEGATIVE (NEGATIVE); UROBILINOGEN,URINE 0.2 (NORMAL) E.U./dL (NORMAL)
[2019-01-07 13:24] LABS: CLARITY,URINE CLEAR (CLEAR)
--- NOTE | 2019-01-07 14:57 | ED Physician Documentation ---
History of Present Illness - Stated complaint Stated Complaint: LOW BP - Chief complaint Chief Complaint: General - History obtained from History obtained from: Patient, Family - History of Present Illness Timing: Today - Additonal information Additional information: The patient is a 68-year-old male with history of bile duct carcinoma, 2 weeks status post chemotherapy, who presents with low blood pressure and lightheadedness. His blood pressure at home was 80/52. He denies any associated chest pain or shortness of breath. He denies fever, cough, or dysur ia. He has ascites and underwent drainage of 6-1/2 L ascites fluid one week ago, and 2 L 2 days ago. 3 weeks ago was hospitalized sepsis. He completed his antibiotics 1 week ago. He denies diarrhea. He reports having a fall yesterday, stating he tripped and fell onto his buttocks. He denies lightheadedness prior to the fall, and he denies hitting his head or losing consciousness. Review of Systems Constitutional: reports: Fatigue, Other (lightheaded). denies: Fever Eyes: denies: Decreased vision Ears: denies: Tinnitus/ringing Nose: denies: Congestion Throat: denies: Sore throat Cardiac: denies: Chest pain / pressure Respiratory: denies: Dyspnea, Cough GI: reports: Nausea, Other (ascites, with a peritoneal drainage catheter in place.). denies: Abdominal Pain, Vomiting, Diarrhea : denies: Dysuria Skin: denies: Rash Musculoskeletal: denies: Back pain Neurologic: reports: Generalized weakness. denies: Focal weakness, Numbness, Altered mental status, Headache, Head injury PD PAST MEDICAL HISTORY - Past Medical History Cardiovascular: Hypertension Endocrine/Autoimmune: Type 2 diabetes, HyPOthyroidism GI: Other Other Past Medical History: bile duct cancer - Past Surgical History Past Surgical History: Yes HEENT: Tonsil/Adenoidectomy - Present Medications Home Medications: Ambulatory Orders Medication Instructions Recorded Confirmed Levothyroxine Sodium 75 mcg ORAL DAILY 01/01/16 01/07/19 Lisinopril 10 mg ORAL DAILY 01/01/16 01/07/19 Metformin HCl 1,000 mg ORAL DAILY 01/01/16 01/07/19 Cetirizine HCl 10 mg PO DAILY 01/07/19 01/07/19 Glucosamine/Chondro Hilario A 1 tab ORAL DAILY 01/07/19 01/07/19 [Glucosamine-Chondroitin Tab] [place]-3 Fatty Acids [Fish Oil 1,000 mg PO DAILY 01/07/19 01/07/19 Concentrate] - Allergies Allergies/Adverse Reactions: Allergies Allergy/AdvReac Type Severity Reaction Status Date / Time No Known Drug Allergies Allergy Verified 12/08/18 08:18 - Living Situation Living Situation: reports: With spouse/s.o. Living Arrangement: reports: At home - Social History Does the pt smoke?: No Smoking Status: Former smoker Does the pt drink ETOH?: Yes Does the pt have substance abuse?: No - Immunizations Immunizations are current?: Yes - POLST Patient has POLST: No PD ED PE NORMAL - Vitals Vital signs reviewed: Yes (blood pressure 98/61 initially, but does drop To 86 Systolic at Its Lowest ) - General General: Alert and oriented X 3, Well developed/nourished - HEENT HEENT: Atraumatic, PERRL, EOMI, Pharynx benign - Neck Neck: Supple, no meningeal sign, No adenopathy, No JVD - Cardiac Cardiac: RRR - Respiratory Respiratory: No respiratory distress, Clear bilaterally - Abdomen Abdomen: Soft, Non tender, Other (Distended with ascites.) - Back Back: No CVA TTP - Derm Derm: No rash - Extremities Extremities: No edema, No calf tenderness / cord - Neuro Neuro: Alert and oriented X 3, No motor deficit, Normal speech Results - Vitals Vitals: Oxygen O2 Source Room air - Labs Labs: Laboratory Tests 01/07/19 01/07/19 01/07/19 12:00 12:00 13:15 WBC 5.4 RBC 2.97 L Hgb 9.5 L Hct 29.0 L MCV 97.6 H MCH 32.0 H MCHC 32.8 RDW 16.4 H Plt Count 111 L MPV 9.5 Neut # (Auto) 3.0 Lymph # (Auto) 1.4 L [place] # (Auto) 0.8 Eos # (Auto) 0.0 Baso # (Auto) 0.0 Absolute Nucleated RBC 0.00 Nucleated RBC % 0.0 Sodium 133 L Potassium 4.5 Chloride 99 L Carbon Dioxide 26 Anion Gap 8.0 BUN 22 H Creatinine 1.6 H Estimated GFR (MDRD) 43 L Glucose 138 H Calcium 8.3 L Total Bilirubin 0.4 AST 42 ALT 22 Alkaline Phosphatase 93 Total Protein 5.6 L Albumin 2.2 L Globulin 3.4 Albumin/Globulin Ratio 0.6 L Lipase 48 Urine Color YELLOW Urine Clarity CLEAR Urine pH 6.0 Ur Specific [place] 1.020 Urine Protein NEGATIVE Urine Glucose (UA) NEGATIVE Urine Ketones NEGATIVE Urine Occult Blood NEGATIVE Urine Nitrite NEGATIVE Urine Bilirubin NEGATIVE Urine Urobilinogen 0.2 (NORMAL) Ur Leukocyte Esterase NEGATIVE Ur Microscopic Review NOT INDICATED Urine Culture Comments NOT INDICATED PD MEDICAL DECISION MAKING - ED course Complexity details: reviewed old records, reviewed results, re-evaluated patient, considered differential, d/w patient, d/w family ED course: The patient's presentation is most consistent with intravascular volume depletion with orthostatic hypotension. There is no evidence of acute infectious process by history or physical examination, and is white blood cell count is normal at 5.4. Urinalysis is negative, and he does not have respiratory symptoms. CBC reveals anemia with a hemoglobin of 9.5 and hematocrit 29.0. I contacted his oncologist's office and learned that his hemoglobin 2 days ago was 10.2. Treatment in the emergency department included administration of normal saline 1 L IV. His blood pressure subsequently improved to 106/82. He demonstrates vandana lity to ambulate without lightheadedness. I discussed with him and his the importance of outpatient follow-up, as well as potentially worrisome signs or symptoms that should prompt reevaluation in the emergency department. Departure - Departure Disposition: 01 Home, Self Care Clinical Impression: Dehydration, Bile duct carcinoma Hypotension Qualifiers: Hypotension type: unspecified hypotension type Qualified Code(s): I95.9 - Hypotension, unspecified Anemia Qualifiers: Anemia type: unspecified type Qualified Code(s): D64.9 - Anemia, unspecified Condition: Stable Instructions: ED Dehydration Follow-Up: NELY PHILIP MD [Physician No Access] - Comments: Drink plenty of fluids. Discontinue lisinopril. Follow-up with your primary physician as planned. Return to the emergency department if you develop recurrent lightheadedness, or otherwise worsening symptoms. Discharge Date/Time: 01/07/19 15:25
[2019-01-07 15:16] VITALS: BP 106/85
== END 2019-01-07 15:25 | disposition home or self-care (01) ==
LOC: EDUNIT# → ED 10:20
DX: E86.0 Dehydration (principal); I95.9 Hypotension, unspecified; D64.9 Anemia, unspecified; C24.9 Malignant neoplasm of biliary tract, unspecified; I10 Essential (primary) hypertension; E11.9 Type 2 diabetes mellitus without complications; Z79.84 Long term (current) use of oral hypoglycemic drugs; Z79.899 Other long term (current) drug therapy
CPT/HCPCS: 36415; 80053; 81001; 81003; 83690; 85025; 87086; 99283; 99284

== ENCOUNTER 2019-01-24 19:57 | Outpatient (CLI) | payer MEDICARE, OTHER ==
--- NOTE | 2019-01-25 10:12 | Ultrasound Report ---
Reason: CHOLANGIO CA WITH NEW RIGHT LOWER LEG SWELLING Procedure Date: 01/24/2019 Accession Number: [id number] / [id number] Procedure: US - Duplex Ext Veins Right CPT Code: FULL RESULT: EXAM: RIGHT LOWER EXTREMITY VENOUS ULTRASOUND EXAM DATE: 01/24/2019 08:46 PM. CLINICAL HISTORY: History of cholangiocarcinoma, new right lower leg swelling. COMPARISON: None. TECHNIQUE: Real-time sonographic vascular imaging was performed by the mounter smoking pipe through the lower extremity utilizing both color-flow and Doppler spectral analysis. Multiple field representatives director static images were saved for review. FINDINGS: Common Femoral Vein (CFV): Normal. CFV-GSV Junction: Normal. Profunda Femoral Vein (PFV): Normal. Femoral Vein (FV) Prox: Normal. Femoral Vein (FV) Mid: Normal. Femoral Vein (FV) Dist: Normal. Popliteal Vein: Normal. Posterior Tibial Veins: Limited evaluation but no definite DVT. Peroneal Veins: Limited evaluation but no definite DVT. Contralateral Side CFV: Normal. Other: A fluid pocket posterior to the right knee is consistent with a Chandra's cyst and measures 2.7 x 1.6 x 1.8 cm. IMPRESSION: 1. No evidence for right lower extremity DVT. 2. 2.7 cm Chandra's cyst noted. RADIA
== END 2019-01-24 19:58 | disposition home or self-care (01) ==
LOC: DI 19:57
PROVIDERS: ATTEND Pediatrics
DX: C22.1 Intrahepatic bile duct carcinoma (principal); C78.6 Secondary malignant neoplasm of retroperitoneum and peritoneum; R22.41 Localized swelling, mass and lump, right lower limb; M71.21 Synovial cyst of popliteal space [Baker], right knee

== ENCOUNTER 2019-02-20 20:16 | Emergency (ER) | payer MEDICARE, OTHER ==
[2019-02-20 20:47] LABS: BASOPHILS % (AUTO) 0.5 %; EOSINOPHILS % (AUTO) 0.1 %; HGB - HEMOGLOBIN 12.6 g/dL (14.0-18.0); LYMPHOCYTES # (AUTO) 2.2 10^3/uL (1.5-3.5); LYMPHOCYTES % (AUTO) 28.3 %; MEAN CORPUSCULAR HGB CONC 32.6 g/dL (32.0-36.0); MONOCYTES # (AUTO) 0.6 10^3/uL (0.0-1.0); MONOCYTES % (AUTO) 8.1 %; NEUTROPHILS # (AUTO) 4.6 10^3/uL (1.5-6.6); NEUTROPHILS % (AUTO) 59.4 %; PLT - PLATELET COUNT 191 10^3/uL (130-450); RED BLOOD COUNT 3.94 10^6/uL (4.70-6.10); RED CELL DISTRIBUTION WIDTH 18.2 % (12.0-15.0); WHITE BLOOD COUNT 7.8 x10^3/uL (4.8-10.8)
[2019-02-20 20:59] LABS: ALBUMIN 2.1 g/dL (3.2-5.5); ALBUMIN/GLOBULIN RATIO 0.6 (1.0-2.2); BILIRUBIN,TOTAL 0.5 mg/dL (0.2-1.0); CALCIUM 8.3 mg/dL (8.5-10.3); CREATININE 1.3 mg/dL (0.6-1.2); TOTAL PROTEIN 5.7 g/dL (6.7-8.2)
--- NOTE | 2019-02-20 21:10 | ED Physician Documentation ---
PD HPI ABD PAIN - Stated complaint Stated Complaint: CONSTIPATION, ABD PX - Chief complaint Chief Complaint: Abd Pain - History obtained from History obtained from: Patient, Family - History of Present Illness Timing - onset: How many days ago (1-2 days of cramping abd pain, mostly lower. Had minimal hard stools the past 4-6 days. Concerned in that he had had bowel perforation related to constipation in the past.) Timing - details: Intermittant Quality: Cramping, Aching Location: Other (lower abd) Radiation: No: Lower back, Right flank Improved by: No: Eating Worsened by: No: Eating, Moving, Palpation Associated symptoms: Constipation. No: Fever, Nausea, Vomiting, Diarrhea, Melena Similar symptoms before: Diagnosis (constipation. Had had bowel perf at divertic due to constipation in the past, but pain was much worse with that.) Review of Systems Constitutional: denies: Fever, Chills Nose: denies: Rhinorrhea / runny nose, Congestion Throat: denies: Sore throat Respiratory: denies: Cough GI: reports: Abdominal Pain, Constipation. denies: Abdominal Swelling, Nausea, Vomiting, Diarrhea, Bloody / black stool : denies: Dysuria, Frequency Skin: denies: Rash PD PAST MEDICAL HISTORY - Past Medical History Cardiovascular: Hypertension Endocrine/Autoimmune: Type 2 diabetes, HyPOthyroidism GI: Other - Past Surgical History Past Surgical History: Yes HEENT: Tonsil/Adenoidectomy - Present Medications Home Medications: Ambulatory Orders Medication Instructions Recorded Confirmed Lisinopril 10 mg ORAL DAILY 01/01/16 01/09/19 Metformin HCl 1,000 mg ORAL BID 01/01/16 01/09/19 Glucosamine/Chondro Hilario A 1 tab ORAL BID 01/07/19 01/09/19 [Glucosamine-Chondroitin Tab] [place]-3 Fatty Acids [Fish Oil 1,000 mg PO BID 01/07/19 01/09/19 Concentrate] Apixaban [Eliquis] 5 mg PO BID 01/09/19 01/09/19 Bisacodyl [Dulcolax] 1 tab PO DAILY 01/09/19 01/09/19 Ciprofloxacin HCl [Cipro] 500 mg PO TID 01/09/19 01/09/19 Levothyroxine [Synthroid] 88 mcg PO QDAC 01/09/19 01/09/19 Magnesium Sulfate 1 tab PO BID PRN 01/09/19 01/09/19 Metronidazole 500 mg PO Q8HR 01/09/19 01/09/19 Ondansetron [Ondansetron Odt] 8 mg PO Q8HR PRN 01/09/19 01/09/19 Pantoprazole [Protonix] 40 mg PO DAILY 01/09/19 01/09/19 Prochlorperazine Maleate 10 mg PO Q6HR PRN 01/09/19 01/09/19 [Compazine] - Allergies Allergies/Adverse Reactions: Allergies Allergy/AdvReac Type Severity Reaction Status Date / Time No Known Drug Allergies Allergy Verified 12/08/18 08:18 - Social History Does the pt smoke?: No Smoking Status: Former smoker Does the pt drink ETOH?: Yes Does the pt have substance abuse?: No - Immunizations Immunizations are current?: Yes - POLST Patient has POLST: No PD ED PE NORMAL - Vitals Vital signs reviewed: Yes - General General: Alert and oriented X 3, No acute distress, Well developed/nourished - Cardiac Cardiac: RRR, No murmur - Respiratory Respiratory: Clear bilaterally - Rectal Rectal: Other (some firm stool in vault, not impacted per se. guiac negative. ) - Back Back: No CVA TTP - Derm Derm: Normal color, Warm and dry - Extremities Extremities: Normal ROM s pain, No edema, No calf tenderness / cord - Neuro Neuro: Alert and oriented X 3, No motor deficit, Normal speech Results - Vitals Vitals: Oxygen O2 Source Room air - Labs Labs: Laboratory Tests 02/20/19 02/20/19 20:41 20:41 WBC 7.8 RBC 3.94 L Hgb 12.6 L Hct 38.6 L MCV 98.0 H MCH 32.0 H MCHC 32.6 RDW 18.2 H Plt Count 191 MPV 9.0 Neut # (Auto) 4.6 Lymph # (Auto) 2.2 [place] # (Auto) 0.6 Eos # (Auto) 0.0 Baso # (Auto) 0.0 Absolute Nucleated RBC 0.00 Nucleated RBC % 0.0 Sodium 131 L Potassium 4.5 Chloride 97 L Carbon Dioxide 26 Anion Gap 8.0 BUN 19 Creatinine 1.3 H Estimated GFR (MDRD) 55 L Glucose 107 H Calcium 8.3 L Total Bilirubin 0.5 AST 76 H ALT 48 Alkaline Phosphatase 215 H Total Protein 5.7 L Albumin 2.1 L Globulin 3.6 Albumin/Globulin Ratio 0.6 L Lipase 34 PD MEDICAL DECISION MAKING - ED course Complexity details: re-evaluated patient (only small output with enema here. Was given Miralax and he has some of that at home, so can re-dose there. Abd is not tender nor distended. I did not feel imaging was indicated as not suspicious for perforation/etc, as he was concerned about (had happened with constipation previously).), considered differential, d/w patient Departure - Departure Disposition: Home, Self Care Clinical Impression: Constipation Qualifiers: Constipation type: other constipation type Qualified Code(s): K59.09 - Other constipation Condition: Stable Record reviewed to determine appropriate education?: Yes Instructions: ED Constipation Follow-Up: NELY PHILIP MD [Primary Care Provider] - Comments: Stay well-hydrated. Tomorrow use your MiraLAX every 1-2 hours until you start having a good stool output. The dose tonight and the enema tonight should start the stimulation and provide for some more output tomorrow. Follow-up with your primary care or return if you are still having constipation problems or if you develop abdominal pain bloating nausea vomiting or other concerns. Discharge Date/Time: 02/20/19 23:30
[2019-02-20] MEDS ORDERED: MINERAL OIL ENEMA 133 ML BOTTLE RC STA (21:40)
[2019-02-20] MEDS ORDERED: POLYETHYLENE GLYCOL 3350 238 GM BOTTLE PO STA (21:40)
[2019-02-20] MEDS ORDERED: POLYETHYLENE GLYCOL 3350 17 GM PACKET ONE (22:12)
[2019-02-20 23:19] VITALS: BP 114/82
== END 2019-02-20 23:30 | disposition home or self-care (01) ==
LOC: ED 20:16
DX: K59.09 Other constipation (principal); I10 Essential (primary) hypertension; E11.9 Type 2 diabetes mellitus without complications; Z79.84 Long term (current) use of oral hypoglycemic drugs; Z79.01 Long term (current) use of anticoagulants; Z87.891 Personal history of nicotine dependence
CPT/HCPCS: 36415; 80053; 83690; 85025; 99283; 99284; A9270

== ENCOUNTER 2019-02-23 16:28 | Emergency (ER) | payer MEDICARE, OTHER ==
--- NOTE | 2019-02-23 17:15 | ED Physician Documentation ---
PD HPI ABD PAIN - Stated complaint Stated Complaint: ABD PX/CONSTIPATION - Chief complaint Chief Complaint: Abd Pain - History obtained from History obtained from: Patient (68-year-old gentleman with stage IV bile duct cancer, recent episode of abdominal sepsis. He is on some narcotics. Has not had a bowel movement in 7 days and feels uncomfortable from it. He is a little [place] but not vomiting. No significant increase in abdominal pain.) Review of Systems Constitutional: reports: Reviewed and negative Cardiac: reports: Reviewed and negative Respiratory: reports: Reviewed and negative GI: reports: Reviewed and negative : reports: Reviewed and negative PD PAST MEDICAL HISTORY - Past Medical History Past Medical History: Yes Cardiovascular: Hypertension Endocrine/Autoimmune: Type 2 diabetes, HyPOthyroidism GI: Other - Past Surgical History Past Surgical History: Yes HEENT: Tonsil/Adenoidectomy - Present Medications Home Medications: Ambulatory Orders Medication Instructions Recorded Confirmed Lisinopril 10 mg ORAL DAILY 01/01/16 01/09/19 Metformin HCl 1,000 mg ORAL BID 01/01/16 01/09/19 Glucosamine/Chondro Hilario A 1 tab ORAL BID 01/07/19 01/09/19 [Glucosamine-Chondroitin Tab] [place]-3 Fatty Acids [Fish Oil 1,000 mg PO BID 01/07/19 01/09/19 Concentrate] Apixaban [Eliquis] 5 mg PO BID 01/09/19 01/09/19 Bisacodyl [Dulcolax] 1 tab PO DAILY 01/09/19 01/09/19 Ciprofloxacin HCl [Cipro] 500 mg PO TID 01/09/19 01/09/19 Levothyroxine [Synthroid] 88 mcg PO QDAC 01/09/19 01/09/19 Magnesium Sulfate 1 tab PO BID PRN 01/09/19 01/09/19 Metronidazole 500 mg PO Q8HR 01/09/19 01/09/19 Ondansetron [Ondansetron Odt] 8 mg PO Q8HR PRN 01/09/19 01/09/19 Pantoprazole [Protonix] 40 mg PO DAILY 01/09/19 01/09/19 Prochlorperazine Maleate 10 mg PO Q6HR PRN 01/09/19 01/09/19 [Compazine] Lactulose [Generlac] 10 gm PO QID PRN #200 ml 02/23/19 - Allergies Allergies/Adverse Reactions: Allergies Allergy/AdvReac Type Severity Reaction Status Date / Time No Known Drug Allergies Allergy Verified 12/08/18 08:18 - Social History Does the pt smoke?: No Smoking Status: Never smoker Does the pt drink ETOH?: Yes Does the pt have substance abuse?: No - Immunizations Immunizations are current?: Yes - POLST Patient has POLST: No PD ED PE NORMAL - Vitals Vital signs reviewed: Yes - General General: Alert and oriented X 3, No acute distress - Abdomen Abdomen: Other (There is a noninfected appearing paracentesis drain in place left mid abdomen without evidence of infection, the abdomen is protuberant with small fluid wave but nontender.) - Rectal Rectal: Other (There is a small firm fecal impaction which was disimpacted during exam and an enema was placed.) - Extremities Extremities: Other (Mild pitting pedal edema) - Neuro Neuro: Alert and oriented X 3, Normal speech Results - Vitals Vitals: Vital Signs - 24 hr 02/23/19 02/23/19 16:35 16:38 Temperature 36.7 C Heart Rate 96 96 Respiratory 18 18 Rate Blood Pressure 140/91 H 140/91 H O2 Saturation 100 100 Oxygen O2 Source Room air PD MEDICAL DECISION MAKING - ED course ED course: After an enema, he had a large bowel movement and was feeling much better. Departure - Departure Disposition: 01 Home, Self Care Clinical Impression: Fecal impaction Condition: Good Record reviewed to determine appropriate education?: Yes Instructions: ED Impaction Fecal Treated Prescriptions: Lactulose [Generlac] 10 gm PO QID PRN #200 ml PRN Reason: Constipation Comments: Call your doctor to arrange a follow-up appointment, make the next available appointment. In the interim, return anytime if worse or if new symptoms develop.
[2019-02-23] MEDS ORDERED: MAGNESIUM CITRATE 296 ML BOTTLE PO STA (17:48)
[2019-02-23 18:05] VITALS: BP 138/88
== END 2019-02-23 18:04 | disposition home or self-care (01) ==
LOC: ED 16:28
DX: K56.41 Fecal impaction (principal); I10 Essential (primary) hypertension; E11.9 Type 2 diabetes mellitus without complications; Z79.84 Long term (current) use of oral hypoglycemic drugs
CPT/HCPCS: 99282; 99283; A9270